=== PATIENT | male | born 2000 | race Caucasian/White ===

== ENCOUNTER 2022-03-19 11:50 | Emergency (ER) | payer MEDICAID, SELFPAY ==
[2022-03-19 11:51] VITALS: BP 134/79; PULSE 98; RESP 16; TEMP 36.4; O2SAT 100; BMI 17.9
--- NOTE | 2022-03-19 12:12 | ED.VIS.DYS ---
HPI History of Present Illness Chief Complaint: Shortness of Breath Informant: patient Onset/Context/Timing Onset: Weeks (Onset 1 week) Context: gradual Timing: Continuous Quality: Negative for Dyspnea on exertion, Orthopnea, PND or Wheezing Current Severity: Gone Maximum Severity: Moderate Worsened by: Exertion Relieved by: Rest Associated Symptoms Negative for cough, rhinorrhea, post nasal drip, ear pain, fever, sore throat, subjective, chills or sweats Chest Pain: Positive for None Narrative Narrative: Patient is a 21-year-old male who presents to the emergency room because his girlfriend made him. He denies history of PE or DVT. He has no risk factors for VTE. He denies leg pain, swelling discoloration. He denies fever or chills. He denies headache, ocular, visual auditory symptoms. He denies rhinorrhea, congestion, postnasal drip and sore throat. He denies cough. He denies chest discomfort of any type. He denies GI symptoms. He denies urologic symptoms. He denies bruising easily. He denies black or maroon-colored stool. He reports increased heart rate walking up the incline to get to the emergency department. His heart rate was 80 at the bottom of the incline and 120 at the top of the incline. He denied increased shortness of breath. PE Risk Factors: Negative for Cancer, OCP + Smoking + > 35, Prior DVT or PE, Recent immobilization, Recent surgery or Recent travel Prior similar symptoms: No Recent Illness/Hospitalization: No PFSH PFSH Medical History no medical history no medical history Allergy/AdvReac Type Severity Reaction Status Date / Time No Known Allergies Allergy Verified 03/19/22 11:52 Surgical History no surgical history no surgical history Social History (Updated 03/19/22 @ 12:[address] Tato Marrero MD) household members: significant other Smoking Status: Former smoker substance use type: does not use ROS ROS ED Constitutional Constitutional ED: Denies chills, fever(s), sweats or weight loss Eyes Eyes: Denies blurry vision, change in vision or diplopia ENT ENT ED: Denies ear pain, rhinorrhea or sore throat Cardiovascular Cardiovascular: Reports racing heartbeat; Denies chest pain, orthopnea, palpitations or paroxysmal nocturnal dyspnea Respiratory/Chest Respiratory/Chest: Reports dyspnea and dyspnea on exertion; Denies cough, orthopnea, paroxysmal nocturnal dyspnea or sputum Gastrointestinal Gastrointestinal: Denies abdominal pain, melena, nausea or vomiting Musculoskeletal Musculoskeletal: Denies arthralgias, back pain, myalgias or neck pain Integumentary Denies Abrasions or rash Neurologic Neurologic: Denies paresthesias or weakness Endocrine Endocrinology: Denies cold intolerance or heat intolerance Hematologic/Lymphatic Hematologic/Lymphatic: Denies easy bleeding or easy bruising EXAM Physical Exam Const Vital Signs: 03/19/22 11:51 03/19/22 12:01 Temperature 97.6 F L Temperature Source Temporal Pulse Rate 98 Respiratory Rate 16 Respiratory Effort Normal Non-Labored Respiratory Depth Normal Respiratory Pattern Normal Blood Pressure 134/79 H Blood Pressure Mean 97 Pulse Ox 100 Oxygen Delivery Method Room Air Room Air Positive well nourished and well developed General Appearance ED: well developed and NAD; Negative for pallor HEENT Reports moist mucous membranes HEENT Narrative: Head is atraumatic normocephalic. Ears normal. Nares patent. Uvula midline. There is no deviation of tongue protrusion. Eyes PERRL and EOMs intact bilaterally General Eye ED: Negative for pale conjunctiva or scleral icterus Neck no lymphadenopathy, supple, no meningeal signs and no JVD Neck Narrative: Trachea is midline. There is poor expiratory scar. Resp normal respiratory effort and clear to auscultation bilaterally Cardio regular rate, regular rhythm, S1 normal heart sound, S2 normal heart sound and no murmurs GI non-tender, non-distended and no masses Auscultation: normoactive bowel sounds Palpation: soft Back/Spine no CVA tenderness Extremity Extremity Narrative: There is no asymmetry, swelling, discoloration, leg vein distention, palpable cords or tenderness along the distribution of the deep venous system. Neuro oriented x3, CN's II-XII intact bilaterally and no sensory deficits noted Sensorium / Orientation: alert Speech: speech normal Gait (Neuro): normal gait Psych mental status grossly normal Skin no wounds and skin turgor normal General Skin Exam: Negative for jaundice or pallor Lesions: no lesions Rashes: no rashes MDM MDM MDM Narrative Medical decision making narrative: Presents with shortness of breath. D-dimer was not obtained since patient is PERC negative. Patient's vital signs are normal. His pulse ox is 100%. Clinically he is not anemic. For this reason CBC was not obtained. Chest x-ray was obtained to determine if there is any pulmonary pathology would explain his shortness of breath. Patient was informed the rise in heart rate going up an incline is a normal physiologic response. He denies history of asthma as a child. He states he quit smoking was 17. He was never diagnosed with lung problems. Radiography Chest X-Ray - ED: 2 View and Read by ED Physician (2 view chest x-ray independently reviewed interpreted by me at 1228 is negative. Cardiac silhouette and size normal. Lung parenchyma no. No evidence of pneumothorax. No infiltrate. No effusion. Osseous structures unremarkable. Perihilar regions unremarkable.) Rhythm Strip Rhythm Strip: Sinus Rhythm Rate: 92 Ectopy: None Discharge Plan Triage Chief Complaint: Shortness of Breath Other Complaint: Dizziness ED Provider: Tato Marrero Dx/Rx/DC Orders Clinical Impression: Dyspnea Instructions: ED Dyspnea Primary Care Provider: Care Physician,No Primary Referrals: Jojo Navarro [Non-Staff] - 1 Week if not improving NOT,DEFINED [Non-Staff] - Disposition Disposition: Home, Self Care
--- NOTE | 2022-03-19 12:13 | RAD_ITS ---
STUDY: X-RAY CHEST REASON FOR EXAM: Male, 21 years old. Dyspnea TECHNIQUE: PA and lateral views of the chest. COMPARISON: None. FINDINGS: Hyperinflation. The lungs are clear. There is no demonstrated pleural abnormality. Normal size heart. Normal mediastinum and rosana. Normal visualized pulmonary arteries. Normal visualized aortic arch and descending thoracic aorta. Normal visualized thoracic spine. Normal visualized ribs, clavicles, and shoulders. There is no demonstrated abnormality of the visualized soft tissue structures of the upper abdomen. RAD/Chest PA and Lateral IMPRESSION: Hyperinflation. The lungs are clear. Electronically Signed: Mt Butler MD at 12:54 EST ,
--- NOTE | 2022-03-19 12:41 | CM.ED ---
ADAM attempted to follow up with patient as he has no PCP. However, patient had already left. Kathy SAHU
== END 2022-03-19 12:38 | disposition home or self-care (01) ==
PROVIDERS: Emergency Provider Emergency Medicine; Visit Provider Emergency Medicine
DX: R06.02 Shortness of breath (principal); R42 Dizziness and giddiness; Z87.891 Personal history of nicotine dependence
CPT/HCPCS: 71046; 99282